=== PATIENT | male | born 1995 | race African-American/Black ===

== ENCOUNTER 2018-07-17 04:12 | Emergency (ER) | payer OTHER ==
[~2018-07-17] VITALS: Ht 180.3 cm; Wt 111.1 kg
[2018-07-17 04:24] VITALS: BP 116/73
[2018-07-17] MEDS ORDERED: LORA-254 PO (04:38)
--- NOTE | 2018-07-17 04:43 | ED.ADGEN ---
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 Patient reports occasional nightmare with scary dream last night when at ago. He states he's had difficulty sleeping since that time. Patient typically takes Benadryl prior to bedtime to assist with sleep. Reports feeling his he and his heart race upon trying to sleep this evening prompting him to come to the emergency department. Patient does not currently have a primary care physician. [] Review of Systems Review of Systems Review symptoms as per history of present illness. All other review symptoms are negative. [] All other systems were reviewed and found to be within normal limits, except as documented in this note. Current Medications Current Medications Current Medications Medications (Trade) Dose Ordered Sig/Nael Start Time Stop Time Status Last Admin Dose Admin Lorazepam (Ativan) 1 mg 1X ONCE 07/17/18 04:45 07/17/18 04:46 UNV Physical Exam Physical Exam Constitutional: Well developed, well nourished, no acute distress, non-toxic appearance. [] HENT: Normocephalic, atraumatic, bilateral external ears normal, oropharynx moist, no oral exudates, nose normal. [] Eyes: PERRLA, EOMI, conjunctiva normal. [] Neck: Normal range of motion, no tenderness. [] Cardiovascular:Heart rate regular rhythm, no murmur [] Lungs & Thorax: Bilateral breath sounds clear to auscultation. [] Abdomen: Bowel sounds normal, soft, no tenderness. [] Skin: Warm, dry, no erythema, no rash. [] Back: No tenderness. [] Extremities: No tenderness, no cyanosis, no clubbing, ROM intact, no edema. [] Neurologic: Alert and oriented, normal motor function, normal sensory function, no focal deficits noted. [] Psychologic: Affect anxiety. [] Current Patient Data Vital Signs Vital Signs Date Time Temp Pulse Resp B/P (MAP) Pulse Ox O2 Delivery O2 Flow Rate FiO2 07/17/18 04:24 97.8 67 16 100 Room Air EKG EKG [EKG: Sinus bradycardia, early repolarization] Radiology/Procedures Radiology/Procedures [] Course & Med Decision Making Course & Med Decision Making Pertinent Labs and Imaging studies reviewed. (See chart for details) [Ativan given for anxiety. Recommend following up with PCP for further management of chronic anxiety.] Final Impression Final Impression [#1 anxiety #2 palpitations] Arnoldo Disclaimer Dragon Disclaimer This electronic medical record was generated, in whole or in part, using a voice recognition dictation system. LIOR KAUR DO Jul 17, 2018 04:43
[2018-07-17] MEDS ORDERED: LORazepam 1 MG TABLET PO ONE (04:45)
--- NOTE | 2018-07-17 11:04 | EKG ---
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
== END 2018-07-17 04:44 | disposition home or self-care (01) ==
LOC: ER 04:12
DX: F41.9 Anxiety disorder, unspecified (principal); R00.2 Palpitations; R00.1 Bradycardia, unspecified
CPT/HCPCS: 93005; 99284

== ENCOUNTER 2018-09-19 15:20 | Emergency (ER) | payer OTHER ==
[~2018-09-19] VITALS: Ht 180.3 cm; Wt 113.4 kg
[~2018-09-19 15:20] MED LIST: LORA-254 PO
--- NOTE | 2018-09-19 16:12 | RAD ---
2 views left tibia-fibula and three-view left ankle dated 08/20/2018. No comparison available. Clinical data indication: Pain after injury. FINDINGS: 3 views of left ankle show a comminuted oblique fracture of the distal one third fibular shaft with mild lateral displacement. The posterior and medial malleoli are intact. Talar dome is intact. Diffuse soft tissue swelling. 2 views of tibia fibula show intact proximal tibia and fibular shaft. No additional acute bony abnormality. IMPRESSION: 1. Oblique, mildly displaced fracture of the distal one third fibular shaft. 2. Diffuse soft tissue swelling. 3. No additional fractures are seen. Electronically signed by: Srini Little MD (09/19/2018 4:08 PM) [id number]
--- NOTE | 2018-09-19 16:22 | PHYS DOC ---
Past History Past Medical History: Asthma Past Surgical History: Other Alcohol Use: Occasionally Drug Use: None Adult General Chief Complaint Chief Complaint: ANKLE PROBLEM HPI HPI 23-year-old male presents with left ankle pain and swelling. The patient injured his ankle playing football several days ago. Continues ankle swelling is just as bad as the initial injury. He is here for x-rays and further evaluation. The patient's leg was twisted and wedged between 2 other players in a torque like fashion. He is able to walk, but it is painful. Review of Systems Review of Systems Constitutional: Denies fever or chills [] Eyes: Denies change in visual acuity, redness, or eye pain [] HENT: Denies nasal congestion or sore throat [] Respiratory: Denies cough or shortness of breath [] Cardiovascular: No additional information not addressed in HPI [] GI: Denies abdominal pain, nausea, vomiting, bloody stools or diarrhea [] : Denies dysuria or hematuria [] Musculoskeletal: Left ankle pain[] Integument: Denies rash or skin lesions [] Neurologic: Denies headache, focal weakness or sensory changes [] Endocrine: Denies polyuria or polydipsia [] All other systems were reviewed and found to be within normal limits, except as documented in this note. Allergies Allergies Allergies Coded Allergies Type Severity Reaction Last Updated Verified No Known Drug Allergies 07/17/18 No Physical Exam Physical Exam Constitutional: Well developed, well nourished, no acute distress, non-toxic appearance. [] HENT: Normocephalic, atraumatic, bilateral external ears normal, oropharynx moist, no oral exudates, nose normal. [] Eyes: PERRLA, EOMI, conjunctiva normal, no discharge. [] Neck: Normal range of motion, no tenderness, supple, no stridor. [] Cardiovascular:Heart rate regular rhythm, no murmur [] Lungs & Thorax: Bilateral breath sounds clear to auscultation [] Abdomen: Bowel sounds normal, soft, no tenderness, no masses, no pulsatile masses. [] Skin: Warm, dry, no erythema, no rash. [] Back: No tenderness, no CVA tenderness. [] Extremities: Left ankle tenderness, swelling, ecchymosis. Proximal leg and knee unremarkable.[] Neurologic: Alert and oriented X 3, normal motor function, normal sensory function, no focal deficits noted. [] Psychologic: Affect normal, judgement normal, mood normal. [] Current Patient Data Vital Signs Vital Signs Date Time Temp Pulse Resp B/P (MAP) Pulse Ox O2 Delivery O2 Flow Rate FiO2 09/19/18 15:40 97.4 69 18 99 Room Air EKG EKG [] Radiology/Procedures Radiology/Procedures [] Impressions: 2 views left tibia-fibula and three-view left ankle dated 08/20/2018. No comparison available. Clinical data indication: Pain after injury. FINDINGS: 3 views of left ankle show a comminuted oblique fracture of the distal one third fibular shaft with mild lateral displacement. The posterior and medial malleoli are intact. Talar dome is intact. Diffuse soft tissue swelling. 2 views of tibia fibula show intact proximal tibia and fibular shaft. No additional acute bony abnormality. IMPRESSION: 1. Oblique, mildly displaced fracture of the distal one third fibular shaft. 2. Diffuse soft tissue swelling. 3. No additional fractures are seen. Electronically signed by: Isai Little MD (09/19/2018 4:08 PM) [email or web address] DICTATED AND SIGNED BY: ISAI LITTLE MD DATE: 09/19/18 160 CC: LIOR ARNETT DO; PCP,NO 2 views left tibia-fibula and three-view left ankle dated 08/20/2018. No comparison available. Clinical data indication: Pain after injury. FINDINGS: 3 views of left ankle show a comminuted oblique fracture of the distal one third fibular shaft with mild lateral displacement. The posterior and medial malleoli are intact. Talar dome is intact. Diffuse soft tissue swelling. 2 views of tibia fibula show intact proximal tibia and fibular shaft. No additional acute bony abnormality. IMPRESSION: 1. Oblique, mildly displaced fracture of the distal one third fibular shaft. 2. Diffuse soft tissue swelling. 3. No additional fractures are seen. Electronically signed by: Isai Little MD (09/19/2018 4:08 PM) [email or web address] DICTATED AND SIGNED BY: ISAI LITTLE MD DATE: 09/19/18 1606 CC: LIOR ARNETT DO; PCP,NO Course & Med Decision Making Course & Med Decision Making Pertinent Labs and Imaging studies reviewed. (See chart for details) Patient's distal fibula is broken. We will place him in an air splint at this time and he will follow-up with orthopedics. He has been able to tolerate walking. I stressed the importance of not twisting his ankle or falling. He is stable for discharge at this time. [] Dragon Disclaimer Dragon Disclaimer This electronic medical record was generated, in whole or in part, using a voice recognition dictation system. Departure Departure: Impression: Primary Impression: Closed fracture of left distal fibula Disposition: 01 HOME, SELF-CARE Condition: STABLE Referrals: PCP,NO (PCP) Patient Instructions: Ankle Fracture, [id number] Problem Qualifiers Primary Impression: Closed fracture of left distal fibula Encounter type: initial encounter Fracture morphology: unspecified fracture morphology Qualified Codes: S82.832A - Other fracture of upper and lower end of left fibula, initial encounter for closed fracture LIOR ARNETT DO Sep 19, 2018 16:22
[2018-09-19 16:40] VITALS: BP 132/68
== END 2018-09-19 16:55 | disposition home or self-care (01) ==
LOC: ER 15:20
DX: S82.832A Other fracture of upper and lower end of left fibula, initial encounter for closed fracture (principal); J45.909 Unspecified asthma, uncomplicated; X50.1XXA Overexertion from prolonged static or awkward postures, initial encounter; Y93.61 Activity, american tackle football; Y92.89 Other specified places as the place of occurrence of the external cause; Y99.8 Other external cause status
CPT/HCPCS: 29515; 73590; 73610; 99283

== ENCOUNTER 2020-01-14 14:48 | Emergency (ER) | payer OTHER ==
[~2020-01-14] VITALS: Ht 182.9 cm; Wt 136.0 kg
[2020-01-14 15:00] VITALS: BP 133/52
[2020-01-14] MEDS ORDERED: HYDR-3165 PO (15:36)
--- NOTE | 2020-01-14 15:36 | PHYS DOC ---
Past History Past Medical History: No Pertinent History, Asthma Past Surgical History: Other Additional Past Surgical Histo: left leg, right shoulder Alcohol Use: Occasionally Drug Use: None Adult General Chief Complaint Chief Complaint: LOWER EXT PAIN HPI HPI Patient is a 24 year old male who presents with complaint of pain to the right Achilles tendon. The patient states that he was preparing to sprint and getting into a running position. As he planted his foot he states that he felt a sudden pop in his Achilles tendon. Notes that the pain radiated up into his right calf. States that he has not been able to plantarflex his right foot since this happened. Has been able to bear weight but does state it is painful. Denies any other injuries. Denies fall and is not having any pain in the ankle currently. Review of Systems Review of Systems Constitutional: Denies fever or chills [] Musculoskeletal: Pain to right Achilles tendon [] Integument: Denies rash or skin lesions [] Neurologic: Denies headache, focal weakness or sensory changes [] All other systems were reviewed and found to be within normal limits, except as documented in this note. Allergies Allergies Allergies Coded Allergies Type Severity Reaction Last Updated Verified No Known Drug Allergies 07/17/18 No Physical Exam Physical Exam Constitutional: Well developed, well nourished, no acute distress, non-toxic appearance. [] Skin: Warm, dry, no erythema, no rash. [] Extremities: Moderate soft tissue swelling overlying right Achilles tendon, significant tenderness to palpation over Achilles tendon, severely limited plantarflexion. [] Neurologic: Alert and oriented X 3, normal motor function, normal sensory function, no focal deficits noted. [] Current Patient Data Vital Signs Vital Signs Date Time Temp Pulse Resp B/P (MAP) Pulse Ox O2 Delivery O2 Flow Rate FiO2 01/14/20 15:00 98.2 78 16 133/52 (79) 98 Room Air Lab Results Not performed EKG EKG Not performed [] Radiology/Procedures Radiology/Procedures Right ankle x-rays offered but declined by patient. [] Course & Med Decision Making Course & Med Decision Making Pertinent Labs and Imaging studies reviewed. (See chart for details) Based off examination, I suspect Achilles tendon injury with possible full rupture present. Right ankle x-rays were offered but declined by patient. He states that he does not believe there is any injury to the joint and feels confident that his injury is restricted to the Achilles tendon. Examination is limited by swelling and by patient discomfort at this time. The patient was placed in a short leg posterior splint with plantar flexion as tolerated and patient provided with crutches to assist with ambulation. Prescribed [place] for treatment of pain and advised continued RICE therapy at home. Referred to Dr. Bourne for follow-up in the next 5 to 7 days for reevaluation. Advised return to the emergency department for any worsening symptoms. Patient voiced understanding and agreement with treatment plan. [] Dragon Disclaimer Dragon Disclaimer This electronic medical record was generated, in whole or in part, using a voice recognition dictation system. Departure Departure: Impression: Primary Impression: Achilles rupture, right Disposition: HOME/RESIDENCE PRIOR TO ADM Condition: STABLE Referrals: PCP,DIANA (PCP) KARSTEN BOURNE MD Patient Instructions: Achilles Tendon Rupture (Partial, Incomplete) Additional Instructions: Is recommended that you follow-up in the next 5 to 7 days with an orthopedic surgeon for reevaluation as it is suspected that you have torn your Achilles tendon. Return to the emergency department for any worsening symptoms. Scripts Hydrocodone Bit/Acetaminophen (NORCO 5-325 TABLET) 1 Each Tablet 1-2 TAB PO Q4-6HRS, #20 TAB Prov: KAYE BONDS MD 01/14/20 Problem Qualifiers Primary Impression: Achilles rupture, right Encounter type: initial encounter Qualified Codes: S86.011A - Strain of right Achilles tendon, initial encounter KAYE BONDS MD January 14, 2020 15:36
[2020-01-14] MEDS ORDERED: HYDROcodone/APAP 7.5/325MG 1 TAB TABLET PO ONE (15:45)
== END 2020-01-14 15:57 | disposition home or self-care (01) ==
LOC: ER 14:48
DX: S86.011A Strain of right Achilles tendon, initial encounter (principal); J45.909 Unspecified asthma, uncomplicated; X50.9XXA Other and unspecified overexertion or strenuous movements or postures, initial encounter; Y93.89 Activity, other specified; Y92.89 Other specified places as the place of occurrence of the external cause; Y99.8 Other external cause status
CPT/HCPCS: 29515; 99283

== ENCOUNTER 2021-02-01 21:23 | Emergency (ER) | payer OTHER ==
[~2021-02-01] VITALS: Ht 182.9 cm; Wt 136.8 kg
[~2021-02-01 21:23] MED LIST changes: +HYDR-3165 PO
[2021-02-01] MEDS ORDERED: HYDROCORTISONE 1% LOTION BOTTLE. TP ONE (22:00)
[2021-02-01] MEDS ORDERED: CEPH500C PO (22:09)
--- NOTE | 2021-02-01 22:09 | PHYS DOC ---
Past History Past Medical History: No Pertinent History, Asthma Past Surgical History: Other Additional Past Surgical Histo: left leg, right shoulder Alcohol Use: Occasionally Drug Use: None Adult General Chief Complaint Chief Complaint: INSECT BITE HPI HPI Patient is a 25-year-old male, otherwise healthy with no known allergies who presents with a chief complaint of insect bite. States he noticed it earlier in the day, on his right lower ankle and has some itching with it. States he is not sure when exactly he was bitten for where, and not sure what type of insect it was. States he was walking out in the grass couple days ago and has been down in his basement as well. Denies any headache, fevers, neck pain, chest pain, shortness of breath, abdominal pain, nausea, vomiting. States since he noticed it is stayed the same size. States it has eased but he has not taken any medications today for it. States he is up-to-date on tetanus. Review of Systems Review of Systems Review of systems otherwise unremarkable except noted in HPI Allergies Allergies Allergies Coded Allergies Type Severity Reaction Last Updated Verified No Known Drug Allergies 07/17/18 No Physical Exam Physical Exam Constitutional: Well developed, well nourished, no acute distress, non-toxic appearance. [] Extremities: Has an area on right inner ankle, half a centimeter in diameter, with mild erythema and a small solid bump. Neurovascular exam intact. Neurologic: Alert and oriented X 3, no focal deficits noted. [] Psychologic: Affect normal, judgement normal, mood normal. [] EKG EKG [] Radiology/Procedures Radiology/Procedures [] Heart Score C/O Chest Pain: No Risk Factors: Risk Factors: DM, Current or recent (<one month) smoker, HTN, HLP, family history of CAD, obesity. Risk Scores: Risk Factors: DM, Current or recent (<one month) smoker, HTN, HLP, family hist ory of CAD, obesity. Course & Med Decision Making Course & Med Decision Making Patient is a 25-year-old male who presents with concern for insect bite on right ankle Vital signs not concerning. Physical exam noted above. Started on Keflex in the emergency department for superficial cellulitis. Given hydrocortisone cream for symptom control. Discussed use of Tylenol, ibuprofen and Benadryl at home. Advised to follow-up with primary care physician as needed. Advised to come back to the emergency department with new or concerning symptoms as discussed. Family grateful, verbalized understanding and agreed with plan of discharge. [] Dragon Disclaimer Dragon Disclaimer This electronic medical record was generated, in whole or in part, using a voice recognition dictation system. Departure Departure: Impression: Primary Impression: Insect bite Additional Impression: Cellulitis Disposition: HOME / SELF CARE / HOMELESS Condition: GOOD Referrals: PCP,UNKNOWN (PCP) KARLEE ESPAÑA MD Patient Instructions: Cellulitis, Insect Bite Additional Instructions: Thank you for coming in tonight to the emergency department and allowing us to take care of you. Please read all the attached information very carefully. Please take your antibiotics as prescribed and until gone. You can also use hydrocortisone cream at home as well as Benadryl for the itching and symptom control. Please follow-up with your primary care physician as needed to update on ED visit. Please come back to the emergency department immediately with new or concerning symptoms as discussed. Scripts Cephalexin (CEPHALEXIN) 500 Mg Capsule 1 CAP PO BID for cellulitis for 5 Days, #10 CAP Prov: MISHA SHERIDAN MD 02/01/21 Problem Qualifiers MISHA SHERIDAN MD Feb 01, 2021 22:09
[2021-02-01] MEDS ORDERED: HYDROCORTISONE 1% TOPICAL CREAM 30GM TUBE. TP ONE (22:15)
[2021-02-01 22:16] VITALS: BP 134/70
[2021-02-01] MEDS ORDERED: CEPHALEXIN 250 MG CAPSULE PO ONE (22:30)
== END 2021-02-01 22:18 | disposition home or self-care (01) ==
LOC: ER 21:23
DX: S90.561A Insect bite (nonvenomous), right ankle, initial encounter (principal); L03.115 Cellulitis of right lower limb; J45.909 Unspecified asthma, uncomplicated; W57.XXXA Bitten or stung by nonvenomous insect and other nonvenomous arthropods, initial encounter; Y93.89 Activity, other specified; Y92.89 Other specified places as the place of occurrence of the external cause; Y99.8 Other external cause status
CPT/HCPCS: 99283